=== PATIENT | female | born 1995 | race African-American/Black ===

== ENCOUNTER 2016-09-13 19:24 | Emergency (ER) | payer OTHER ==
[~2016-09-13] VITALS: Ht 167.6 cm; Wt 64.0 kg
[2016-09-13 19:37] VITALS: TEMP 36.9; Ht 167.6 cm; Wt 64.0 kg
[2016-09-13] MEDS ORDERED: VNTHFA/IN INH (20:58)
[2016-09-13] MEDS ORDERED: ACET-1256 PO (20:58)
[2016-09-13] MEDS ORDERED: SPIR25TA PO (20:58)
[2016-09-13] MEDS ORDERED: NAPR1TAB9 PO (20:58)
--- NOTE | 2016-09-13 21:39 | EMERGENCY ROOM VISIT NOTE ---
History Report prepared by Candice: Balbir Madrigal Under the Supervision of: Dr. Jenny Wilson D.O. First contact with patient: 20:30 Chief Complaint: ABDOMINAL PAIN Stated Complaint: SEVERE ABDOMINAL PAIN Nursing Triage Summary: Pt reports that she began having severe abdominal pain starting at 0400 on . Pain awoke her from sleep. Pt reports pain in RUQ and RLQ. Also reports constipation as she has not moved her bowels since which is abnormal for her. Denies N,V, or fever. Hx of right sided ovarian cyst. Reports pain is similar to the pain she had with first dx of ovarian cyst. History of Present Illness The patient is a 21 year old female who presents to the Emergency Room with complaints of persistent right-sided abdominal pain since yesterday. The pain is more central when she gets up from laying down. The patient started suddenly at 0400 yesterday, and was constant yesterday and has been intermittent today. The pain does not radiate to the back and is rated 8/10 in severity. The pain was not relieved with Aleve and Tylenol. The patient denies nausea, vomiting, and diarrhea. She also denies any urinary symptoms or abnormal vaginal discharge. The patient has not had a bowel movement since yesterday morning, which is unusual. She does not have any sick contacts. No changes in diet, exercise, or activity. She denies any past abdominal surgeries. She has a history of ovarian cyst on the right side. The patient has a history of well- controlled asthma. Source of History: patient Onset: yesterday Position: abdomen (right) Symptom Intensity: 8/10 Timing: other (persistent) Associated Symptoms: No diarrhea, No nausea, No urinary symptoms, No vomiting Review of Systems See HPI for pertinent positives & negatives. A total of 10 systems reviewed and were otherwise negative. Past Medical & Surgical Medical Problems: (1) Asthma (2) Right ovarian cyst Family History No pertinent family history Social History Smoking Status: Never Smoker Occupation Status: [employer] Current/Historical Medications Scheduled Naproxen (Aleve), 220 MG PO PRN UD Spironolactone (Aldactone), 1 TAB PO DAILY Scheduled PRN Acetaminophen (Tylenol), 1,000 MG PO Q6 PRN for Pain Albuterol Hfa (Ventolin Hfa), 2 PUFFS INH Q6H PRN for Shortness of Breath Allergies Coded Allergies: Chocolate (Verified Allergy, Unknown, hives, 09/13/16) Milk (Verified Allergy, Unknown, diarrhea, 09/13/16) Peanut (Verified Allergy, Unknown, hives/anaphalaxis, 09/13/16) Pistachio (Verified Allergy, Unknown, anaphalaxis, 09/13/16) Shellfish (Verified Allergy, Unknown, anaphalaxis, 09/13/16) Wheat (Verified Allergy, Unknown, hives, 09/13/16) Physical Exam Vital Signs Date Time Temp Pulse Resp B/P Pulse Ox O2 Delivery O2 Flow Rate FiO2 09/13/16 23:27 59 18 105/74 100 Room Air 09/13/16 20:48 68 20 90/66 100 Room Air 09/13/16 19:37 36.9 87 18 98 Room Air Physical Exam GENERAL: alert, well appearing, well nourished, no distress, non-toxic EYE EXAM: normal conjunctiva, PERRL and EOM's grossly intact OROPHARYNX: no exudate, no erythema, lips, buccal mucosa, and tongue normal and mucous membranes are moist NECK: supple, no nuchal rigidity, no adenopathy, non-tender LUNGS: Clear to auscultation. Normal chest wall mechanics HEART: no murmurs, S1 normal and S2 normal ABDOMEN: right lower quadrant tenderness to palpation, abdomen soft, normo- active bowel sounds, no masses, no rebound or guarding. BACK: Back is symmetrical on inspection and there is no deformity, no midline tenderness, no CVA tenderness. SKIN: no rashes and no bruising UPPER EXTREMITIES: upper extremities are grossly normal. LOWER EXTREMITIES: No pitting edema. NEURO EXAM: Normal sensorium, cranial nerves II-XII grossly intact, normal speech, no gross weakness of arms, no gross weakness of legs. Gross sensation intact. Medical Decision & Procedures ER Provider Diagnostic Interpretation: US PELVIS: Transabdominal assessment only 23 cm left ovarian cyst is likely functional. No sonographic findings of torsion. Right ovary and uterus are unremarkable. Read by: Todd Mcintosh M.D. Laboratory Results 09/13/16 21:45 Red Blood Count 4.27, Mean Corpuscular Volume 77.5, Mean Corpuscular Hemoglobin 27.2, Mean Corpuscular Hemoglobin Concent 35.0, Mean Platelet Volume 9.1, Neutrophils (%) (Auto) 54.5, Lymphocytes (%) (Auto) 31.0, Monocytes (%) (Auto) 9.3, Eosinophils (%) (Auto) 4.6, Basophils (%) (Auto) 0.5, Neutrophils # (Auto) 4.18, Lymphocytes # (Auto) 2.38, Monocytes # (Auto) 0.71, Eosinophils # (Auto) 0.35, Basophils # (Auto) 0.04 09/13/16 21:45 Test 09/13/16 21:40 09/13/16 21:45 Urine Color DK YELLOW Urine Appearance CLEAR (CLEAR) Urine pH 6.5 (4.5-7.5) Urine Specific [place] 1.026 (1.000-1.030) Urine Protein NEG (NEG) Urine Glucose (UA) NEG (NEG) Urine Ketones TRACE (NEG) Urine Occult Blood NEG (NEG) Urine Nitrite NEG (NEG) Urine Bilirubin NEG (NEG) Urine Urobilinogen NEG (NEG) Urine Leukocyte Esterase NEG (NEG) White Blood Count 7.67 K/uL (4.8-10.8) Red Blood Count 4.27 M/uL (4.2-5.4) Hemoglobin 11.6 g/dL (12.0-16.0) Hematocrit 33.1 % (37-47) Mean Corpuscular Volume 77.5 fL (80-100) Mean Corpuscular Hemoglobin 27.2 pg (25-34) Mean Corpuscular Hemoglobin Concent 35.0 g/dl (32-36) Platelet Count 307 K/uL (130-400) Mean Platelet Volume 9.1 fL (7.4-10.4) Neutrophils (%) (Auto) 54.5 % Lymphocytes (%) (Auto) 31.0 % Monocytes (%) (Auto) 9.3 % Eosinophils (%) (Auto) 4.6 % Basophils (%) (Auto) 0.5 % Neutrophils # (Auto) 4.18 K/uL (1.4-6.5) Lymphocytes # (Auto) 2.38 K/uL (1.2-3.4) Monocytes # (Auto) 0.71 K/uL (0.11-0.59) Eosinophils # (Auto) 0.35 K/uL (0-0.5) Basophils # (Auto) 0.04 K/uL (0-0.2) RDW Standard Deviation 37.3 fL (36.4-46.3) RDW Coefficient of Variation 13.1 % (11.5-14.5) Immature Granulocyte % (Auto) 0.1 % Immature Granulocyte # (Auto) 0.01 K/uL (0.00-0.02) Anion Gap 8.0 mmol/L (3-11) Est Creatinine Clear Calc Drug Dose 83.3 ml/min Estimated GFR () 93.3 Estimated GFR (Non- 80.5 BUN/Creatinine Ratio 6.0 (10-20) Calcium Level 8.6 mg/dl (8.5-10.1) Total Bilirubin 0.8 mg/dl (0.2-1) Aspartate Amino Transf (AST/SGOT) 16 U/L (15-37) Alanine Aminotransferase (ALT/SGPT) 17 U/L (12-78) Alkaline Phosphatase 70 U/L (45-117) Total Protein 7.8 gm/dl (6.4-8.2) Albumin 3.7 gm/dl (3.4-5.0) Globulin 4.1 gm/dl (2.5-4.0) Albumin/Globulin Ratio 0.9 (0.9-2) Human Chorionic Gonadotropin, Quant < 1 mIU/mL Laboratory results per my review. ED Course 2129: The patient was evaluated in room B2. A complete history and physical exam was performed. 2349: Pt updated on all results. Discussed findings, doubt appendicitis. Pt well appearing. Discussed f/u with theoretical physicist. Medical Decision Differential diagnoses includes but is not limited to gastritis, peptic ulcer disease, GERD, gallbladder disease, pancreatitis, small bowel obstruction, acute coronary syndrome, pericarditis, ischemic bowel, irritable bowel disease, irritable bowel syndrome, appendicitis, diverticulitis, malignancy, hernia, urinary tract infection, torsion, [/ectopic (if female)], perforation, trauma, infectious. Pt well appearing, low clinical suspicion of appendicitis with normal WBC after 48 hours of pain, no f/c, no n/v. No other Gi sx, no vag dc/bleeding. No hx of STD and pt not sexually active right now. No evidence of sx of pathology otw. Doubt toa/pid/torsion/ectopic. Discussed with f/u with theoretical physicist, sx to watch/return for including sx of appendicitis, pt agreeable with plan. Impression Primary Impression: Right lower quadrant abdominal pain Scribe Attestation The scribe's documentation has been prepared under my direction and personally reviewed by me in its entirety. I confirm that the note above accurately reflects all work, treatment, procedures, and medical decision making performed by me. Departure Information Dispostion Home / Self-Care Referrals [facility] (PCP) Patient Instructions My [facility] Additional Instructions Please call and follow-up with theoretical physicist. If you have any worsening pain, develop fevers/chills, nausea/vomiting, diarrhea, vaginal discharge/bleeding, trouble urinating, or you have any other new or concerning symptoms, please return to the emergency room.
[2016-09-13 22:02] LABS: BASO % 0.5 %; BASO ABS # 0.04 K/uL (0-0.2); COMPLETE YES; EOS % 4.6 %; HEMATOCRIT 33.1 % (37-47); IG% 0.1 %; LYMPH ABS # 2.38 K/uL (1.2-3.4); MEAN CELL VOLUME 77.5 fL (80-100); MEAN CORPUSCULAR HEMOGLOBIN 27.2 pg (25-34); MEAN PLATELET VOLUME 9.1 fL (7.4-10.4); MONO % 9.3 %; NEUT % 54.5 %; PLATELET COUNT 307 K/uL (130-400); RED BLOOD COUNT 4.27 M/uL (4.2-5.4); WHITE BLOOD COUNT 7.67 K/uL (4.8-10.8)
[2016-09-13 22:06] LABS: URINE APPEARANCE CLEAR (CLEAR); URINE BILIRUBIN NEG (NEG); URINE COLOR DK YELLOW; URINE NITRITE NEG (NEG); URINE PH 6.5 (4.5-7.5); URINE SPECIFIC GRAVITY 1.026 (1.000-1.030); UROBILINOGEN NEG (NEG); ZZUR CULT IF INDIC CLEAN CATCH NO
[2016-09-13 22:08] LABS: MANUAL MICROSCOPIC REQUIRED? NO; REVIEW REQ? NO
[2016-09-13 22:20] LABS: CALCIUM 8.6 mg/dl (8.5-10.1); POTASSIUM 3.9 mmol/L (3.5-5.1)
[2016-09-13 22:23] LABS: ALB/GLOB RATIO 0.9 (0.9-2)
[2016-09-14 00:09] VITALS: BP 117/67; PULSE 63; O2SAT 100
--- NOTE | 2016-09-14 06:39 | DIAGNOSTIC IMAGING REPORT ---
PELVIC ULTRASOUND CLINICAL HISTORY: Right lower quadrant pain. History of ovarian cyst. COMPARISON STUDY: None, TECHNIQUE: Transabdominal sonography of the pelvis was performed. Transvaginal imaging was deferred in this patient. FINDINGS: The uterus measures 6.9 x 3.9 x 4.1 cm. The endometrium measures 7 mm in thickness. There is no free fluid. The right ovary measures 3.8 x 1.8 x 1.8 cm and the left ovary measures 4.9 x 2.1 x 1.9 cm. Color flow is identified within each ovary. There was a 2.3 cm dominant follicle within the left ovary. IMPRESSION: 1. Unremarkable transabdominal pelvic ultrasound. 2. 2.3 cm dominant follicle within the left ovary. Electronically signed by: Leonel Suero M.D. 09/14/2016 6:37 AM Dictated Date/Time: 09/14/2016 6:36 AM
== END 2016-09-14 00:13 | disposition home or self-care (01) ==
LOC: C.EDB 19:26
DX: R10.31 Right lower quadrant pain (principal); N83.201 Unspecified ovarian cyst, right side; J45.909 Unspecified asthma, uncomplicated; Z79.899 Other long term (current) drug therapy; Z91.011 Allergy to milk products; Z91.018 Allergy to other foods